=== PATIENT | male | born 1965 | race Two or more races ===

== ENCOUNTER 2021-02-17 15:46 | Outpatient (CLI) | payer OTHER ==
[~2021-02-17 15:46] MED LIST: ABANEU-SL TABL1 EACH; ATORVASTATIN CA10 MG PO; GABAPENTIN100 MG PO; INTEGRA F CAPS1 EAC1; LOSARTAN POTASS50 MG PO; NORFLEX100MG PO; OXYC1TAB9 PO; PYRIDOXINE HCL100 MG; SILDENAFIL CIT100 MG; XARELTO10 MG PO
== END 2021-02-17 15:54 | disposition home or self-care (01) ==
LOC: LAB 15:46
PROVIDERS: ATTEND Internal Medicine Hematology & Oncology
DX: D50.8 Other iron deficiency anemias (principal); R79.89 Other specified abnormal findings of blood chemistry; I10 Essential (primary) hypertension; R74.02 Elevation of levels of lactic acid dehydrogenase [LDH]; K76.89 Other specified diseases of liver; D63.8 Anemia in other chronic diseases classified elsewhere; D55.0 Anemia due to glucose-6-phosphate dehydrogenase [G6PD] deficiency; D51.1 Vitamin B12 deficiency anemia due to selective vitamin B12 malabsorption with proteinuria; D51.0 Vitamin B12 deficiency anemia due to intrinsic factor deficiency; D62 Acute posthemorrhagic anemia; M16.12 Unilateral primary osteoarthritis, left hip

== ENCOUNTER 2021-03-02 15:53 | Outpatient (CLI) | payer OTHER | END 2021-03-02 16:09 | disposition home or self-care (01) | LOC: RAD 15:53 | PROVIDERS: ATTEND Orthopaedic Surgery | DX: M25.551 Pain in right hip (principal); M25.552 Pain in left hip ==

== ENCOUNTER → 2021-03-23 | Outpatient (CLI) | payer OTHER | END | disposition home or self-care (01) | LOC: RAD 16:11 | PROVIDERS: ATTEND Orthopaedic Surgery | DX: R07.9 Chest pain, unspecified (principal) ==

== ENCOUNTER 2021-05-22 13:28 | Outpatient (CLI) | payer OTHER | END 2021-05-22 13:44 | disposition home or self-care (01) | LOC: SONOGRAMA 13:28 → MAMO-SONO 14:15 | PROVIDERS: ATTEND Internal Medicine Hematology & Oncology | DX: D51.1 Vitamin B12 deficiency anemia due to selective vitamin B12 malabsorption with proteinuria (principal); D62 Acute posthemorrhagic anemia; M16.12 Unilateral primary osteoarthritis, left hip; I10 Essential (primary) hypertension; E78.2 Mixed hyperlipidemia; E04.2 Nontoxic multinodular goiter ==